=== PATIENT | male | born 1995 | race Two or more races ===

== ENCOUNTER 2017-11-11 18:50 | Emergency (ER) | payer MEDICAID ==
[~2017-11-11] VITALS: Ht 172.7 cm; Wt 63.5 kg
[2017-11-11 19:14] VITALS: BP 121/83
[2017-11-11] MEDS ORDERED: IBUPROFEN 800 MG TAB PO ONE (22:45)
== END 2017-11-11 23:29 | disposition home or self-care (01) ==
LOC: ER 18:50
DX: S82.842A Displaced bimalleolar fracture of left lower leg, initial encounter for closed fracture (principal); X58.XXXA Exposure to other specified factors, initial encounter; Y93.89 Activity, other specified; Y92.89 Other specified places as the place of occurrence of the external cause; Y99.8 Other external cause status
CPT/HCPCS: 29515; 73610

== ENCOUNTER 2021-04-21 06:26 | Emergency (ER) | payer MEDICAID ==
[~2021-04-21] VITALS: Ht 170.2 cm; Wt 63.5 kg
[2021-04-21] MEDS ORDERED: cefTRIAXone SOD 1,000 MG VL IM ONE (09:45)
[2021-04-21] MEDS ORDERED: FLUMAZENIL 0.1 MG/ML INJ 10ML MDV IV ONE (10:00)
[2021-04-21] MEDS ORDERED: NALOXONE HCL 1MG/ML 2ML SYRINGE IV ONE (10:15)
[2021-04-21 10:35] VITALS: BP 107/91
== END 2021-04-21 10:38 | disposition home or self-care (01) ==
LOC: ER 06:26
DX: S61.411A Laceration without foreign body of right hand, initial encounter (principal); V89.2XXA Person injured in unspecified motor-vehicle accident, traffic, initial encounter; Y93.89 Activity, other specified; Y92.89 Other specified places as the place of occurrence of the external cause; Y99.8 Other external cause status
CPT/HCPCS: 12005; 70450; 72125; 73200; 96372; 96374; 96375; 99285; J0696; J2310